=== PATIENT | female | born 1975 | race Caucasian/White ===

== ENCOUNTER → 2016-12-26 | Outpatient (CLI) | payer OTHER ==
[2016-12-26 18:04] LABS: HEMOGLOBIN A1C 10.12 % (4.2-6.0)
[2016-12-27 18:17] LABS: BILIRUBIN,URINE NEGATIVE (NEG); CLARITY,URINE CLEAR (CLEAR); COLOR,URINE YELLOW; GLUCOSE, URINE (UA) NEGATIVE (NEG); NITRATE,URINE NEGATIVE (NEG); OCCULT BLOOD,URINE SMALL (NEG); PH,URINE 5.5 (5.0-8.5); PROTEIN,URINE >300 mg/dl (NEG); UROBILINOGEN,URINE 0.2 mg/dL (0.2)
[2016-12-27 18:18] LABS: URINE SAMPLE TYPE CLEAN CATCH URINE
[2016-12-27 18:23] LABS: BACTERIA,URINE FEW; SQUAMOUS EPITHELIAL CELL,UR MODERATE; URINE CASTS FEW
== END ==
LOC: MOB LAB 16:10
DX: E11.9 Type 2 diabetes mellitus without complications (principal); R31.9 Hematuria, unspecified
CPT/HCPCS: 36415; 81001; 83036; 87088

== ENCOUNTER → 2017-02-25 | Outpatient (CLI) | payer OTHER ==
--- NOTE | 2017-02-25 12:18 | DI ---
XR FOOT COMPLETE MIN 3VW,02/25/2017 11:18 AM: Clinical History: Right foot pain Previous Exam: April 26, 2011 contralateral foot Findings: 3 views of the right foot are obtained, and demonstrate anatomic alignment without fractures. There is some mild enthesopathy at the insertion of the Achilles tendon and the plantar fascia. Surrounding soft tissues are unremarkable. Mild degenerative changes are seen of the first tarsometatarsal joint. Impression: Normal right foot without fractures.
== END ==
LOC: MOB RAD 11:20
PROVIDERS: ATTEND Physician Assistant
DX: M79.671 Pain in right foot (principal)
CPT/HCPCS: 73630